=== PATIENT | female | born 1985 | race American Indian/Alaskan Native ===

== ENCOUNTER 2021-07-06 13:31 | Emergency (ER) | payer SELFPAY ==
[2021-07-06 13:57] VITALS: BP 107/72
--- NOTE | 2021-07-06 14:34 | XRay Report ---
RIGHT HIP 2 VIEW(S) INDICATION / CLINICAL INFORMATION: pain sp fall COMPARISON: None available. FINDINGS: BONES / JOINT(S): No acute fracture or subluxation. No significant arthritis. SOFT TISSUES: No significant abnormality. ADDITIONAL FINDINGS: None. Signer Name: Yung North DO Signed: 07/06/2021 2:29 PM Workstation Name: [id number]
--- NOTE | 2021-07-06 15:22 | Emergency Department Report ---
ED Fall HPI - General Chief Complaint: Fall Stated Complaint: FALL/CHEST PAIN Time Seen by Provider: 07/06/21 14:43 Source: patient Mode of arrival: Ambulatory - History of Present Illness Initial Comments: 36-year-old black female with a past medical history of seizures presents to the emergency department for evaluation after fall. She states that 2 days ago she slipped and fell into a ditch while working. She denies loss of consciousness but states that she has had a right hip pain since then. She states that her right hip pain is 8 out of 10 but she is able to ambulate. Denies loss of consciousness. Complaint: fall -: Sudden, days(s) (2) Fall From: other Fall Witnessed: yes, by bystander Place Fall Occurred: work Loss of Consciousness: none Location: pelvis (Right hip) Severity: moderate Severity scale (0 -10): 8 Quality: aching Context: tripped/slipped Associated Symptoms: denies: headache, neck pain, numbness, weakness, chest paint, shortness of breath, abdominal pain, hematuria, lightheaded, vertigo, confusion - Related Data Allergies Allergy/AdvReac Type Severity Reaction Status Date / Time No Known Allergies Allergy Verified 07/06/21 13:54 ED Review of Systems ROS: Stated complaint: FALL/CHEST PAIN Other details as noted in HPI Comment: All other systems reviewed and negative Constitutional: denies: chills, fever, weakness Respiratory: denies: shortness of breath Cardiovascular: denies: chest pain Gastrointestinal: denies: abdominal pain Musculoskeletal: denies: back pain Neurological: denies: headache, weakness ED Past Medical Hx - Past Medical History Previous Medical History?: Yes Hx Seizures: Yes - Surgical History Past Surgical History?: No ED Physical Exam - General Limitations: No Limitations General appearance: alert, in no apparent distress - Head Head exam: Present: atraumatic, normocephalic - Eye Eye exam: Present: normal appearance. Absent: conjunctival injection - Neck Neck exam: Present: normal inspection, full ROM. Absent: tenderness, lymphadenopathy - Respiratory Respiratory exam: Absent: respiratory distress - Cardiovascular Cardiovascular Exam: Present: normal rhythm - GI/Abdominal GI/Abdominal exam: Absent: soft, distended, tenderness - Extremities Exam Extremities exam: Present: normal inspection - Expanded Lower Extremity Exam Right Hip exam: Present: normal inspection, full ROM, tenderness. Absent: swelling, abrasion, laceration, crepidus, dislocation, erythema, shortening, pelvic stability Upper Leg exam: Present: normal inspection Knee exam: Present: normal inspection Lower Leg exam: Present: normal inspection Ankle exam: Present: normal inspection Neuro vascular tendon exam: Present: no vascular compromise. Absent: pulse deficit, abnormal cap refill, motor deficit, sensory deficit, extremity cold to touch, pallor Gait: Positive: observed and normal - Back Exam Back exam: Present: normal inspection. Absent: vertebral tenderness - Neurological Exam Neurological exam: Present: alert, oriented X3, normal gait - Psychiatric Psychiatric exam: Present: normal affect, normal mood - Skin Skin exam: Present: warm, dry, intact, normal color ED Course Vital Signs 07/06/21 13:56 Temperature 98.2 F Pulse Rate 82 Respiratory 18 Rate Blood Pressure 107/72 O2 Sat by Pulse 99 Oximetry ED Medical Decision Making - Radiology Data Radiology results: report reviewed, image reviewed Right hip x-ray: FINDINGS: BONES / JOINT(S): No acute fracture or subluxation. No significant arthritis. SOFT TISSUES: No significant abnormality. ADDITIONAL FINDINGS: None. - Medical Decision Making 36-year-old black female with a past medical history of seizures presents to the emergency department for evaluation after fall. She states that 2 days ago she slipped and fell into a ditch while working. She denies loss of consciousness but states that she has had a right hip pain since then. She states that her right hip pain is 8 out of 10 but she is able to ambulate. Denies loss of consciousness Right hip x-ray without any acute abnormalities noted. Patient able to ambulate around room without problem. She will be discharged home and advised to take Tylenol and ibuprofen as needed for pain. She is advised to follow-up with primary care provider for worsening symptoms. She is advised to return to the emergency department as needed. She verbalized understanding of and agreement with plan of care. Critical care attestation.: If time is entered above; I have spent that time in minutes in the direct care of this critically ill patient, excluding procedure time. ED Disposition Clinical Impression: Right hip pain Fall Qualifiers: Encounter type: initial encounter Qualified Code(s): W19.XXXA - Unspecified fall, initial encounter Disposition: HOME / SELF CARE / HOMELESS Is pt being admited?: No Does the pt Need Aspirin: No Condition: Stable Instructions: How to Use Cold Therapy, [id number], Musculoskeletal Pain Additional Instructions: Tylenol and ibuprofen as needed for pain. Follow-up with primary care provider if no improvement. Return to the emergency department as needed. Referrals: TRACIE ROSENTHAL MD [Staff Physician] - 3-5 Days Forms: Work/School Release Form(ED) Time of Disposition: 15:22
== END 2021-07-06 16:04 | disposition home or self-care (01) ==
LOC: ED 13:31
DX: M25.551 Pain in right hip (principal); W19.XXXA Unspecified fall, initial encounter; Y93.89 Activity, other specified; Y92.89 Other specified places as the place of occurrence of the external cause; Y99.8 Other external cause status
CPT/HCPCS: 99283